=== PATIENT | female | born 2000 | race Caucasian/White ===

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

== ENCOUNTER → 2020-08-27 | Outpatient (CLI) | payer BC ==
--- NOTE | 2020-08-27 14:29 | RAD ---
EXAM: Left breast sonogram. HISTORY: 19-year-old female presents with a palpable painful breast lump and focal skin erythema. TECHNIQUE: Sonographic imaging of the left breast at the site of palpable concern was performed. COMPARISON: None. FINDINGS: There is a small complex fluid collection within the skin and subcutaneous soft tissues of the left breast at the site of palpable concern at the 11:00 position. The fluid collection measures 12 mm in maximum dimension and is associated with surrounding hyperemia and slight skin thickening. T here are normal-appearing axillary lymph nodes. IMPRESSION: 1. 12 mm irregular hypoechoic lesion with internal echoes within the skin and subcutaneous fat of the left breast at the 11:00 position, corresponding with the site of palpable concern and focal erythem a. The imaging appearance favors a, located and likely superinfected sebaceous cyst with surrounding cellulitis. Short-term sonographic follow-up in 3 months is recommended to confirm resolution and exc lude a persistent underlying lesion. 2. BI-RADS Category 3: Probably benign finding(s). Short term follow up with a left breast sonogram i n 3 months is recommended. Electronically signed by: Saritha Cabezas MD (08/27/2020 2:27 PM) [id number]
== END ==
LOC: US 13:51
PROVIDERS: ATTEND Physician Assistant Medical
DX: N64.89 Other specified disorders of breast (principal)
CPT/HCPCS: 76641